=== PATIENT | female | born 1985 | race Caucasian/White ===

== ENCOUNTER 2024-12-31 17:47 | Emergency (ER) | payer MEDICAID ==
[2024-12-31 18:06] LABS: APPEARANCE,URINE CLEAR; GLUCOSE,URINE NEGATIVE (NEGATIVE); OCCULT BLOOD,URINE NEGATIVE (NEGATIVE)
[2024-12-31 19:00] LABS: CANDIDA DNA PROBE NEGATIVE (NEGATIVE); GARDNERELLA DNA PROBE POSITIVE (NEGATIVE); TRICHOMONAS DNA PROBE NEGATIVE (NEGATIVE)
[2024-12-31 19:37] LABS: C. TRACHOMATIS BY PCR NOT DETECTED; N. GONORRHOEAE BY PCR NOT DETECTED
== END 2024-12-31 19:41 | disposition home or self-care (01) ==
LOC: MW.ED 17:47
DX: N76.0 Acute vaginitis (principal); Z75.3 Unavailability and inaccessibility of health-care facilities
CPT/HCPCS: 81003; 81025; 87480; 87491; 87510; 87591; 87660; 99283

== ENCOUNTER 2025-01-05 20:22 | Emergency (ER) | payer MEDICAID | END 2025-01-05 21:44 | disposition home or self-care (01) | LOC: MW.ED 20:22 | DX: S92.512A Displaced fracture of proximal phalanx of left lesser toe(s), initial encounter for closed fracture (principal); Z75.3 Unavailability and inaccessibility of health-care facilities; W22.8XXA Striking against or struck by other objects, initial encounter; Y93.89 Activity, other specified | CPT/HCPCS: 73630-26-RT; 73630-RT; 99282; 99283 ==